=== PATIENT | male | born 1970 | race Caucasian/White ===

== ENCOUNTER 2019-08-15 22:08 | Emergency (ER) | payer OTHER ==
[~2019-08-15] VITALS: Ht 188 cm; Wt 80.7 kg
[2019-08-15 22:16] VITALS: Ht 188 cm; Wt 80.7 kg
[2019-08-16 00:10] VITALS: BP 131/88
== END 2019-08-16 00:10 | disposition home or self-care (01) ==
LOC: ED 22:08
DX: S43.401A Unspecified sprain of right shoulder joint, initial encounter (principal); L40.9 Psoriasis, unspecified; Z90.89 Acquired absence of other organs; X58.XXXA Exposure to other specified factors, initial encounter; Y93.89 Activity, other specified; Y92.89 Other specified places as the place of occurrence of the external cause; Y99.8 Other external cause status
CPT/HCPCS: Q0092